=== PATIENT | female | born 1980 | race Caucasian/White ===

== ENCOUNTER 2024-01-25 21:59 | Emergency (ER) | payer SELFPAY ==
[2024-01-25 22:00] VITALS: BP 125/83; PULSE 76; RESP 18; TEMP 36.2; O2SAT 100; BMI 28.3
--- NOTE | 2024-01-25 22:15 | EX.ED.DYSGE1 ---
HPI History of Present Illness Chief Complaint: Complaint Detail of Chief Complaint: Patient presents because she believes she has a UTI Informant: patient and spouse/S.O. Onset/Context/Timing Onset: Yesterday Context: Sudden Onset Timing: Intermittent Quality: Sensation she is not emptying completely and something is going to fall out Location: Right and left inguinal region Current Severity: Mild Maximum Severity: Moderate Worsened by: after voiding Relieved by: Nothing Associated Symptoms Associated Symptoms: Nothing Narrative Narrative: patient is a 43-year-old sexually active woman. Menses ended 2 weeks ago. She does not use any form of control. She is sexually active. She is visiting from [place]. Apparently her and her significant other had anal and vaginal intercourse prior to onset of symptoms. She denies vaginal discharge or vaginal bleeding. She denies rectal pain or rectal bleeding. She denies diarrhea. She denies dysuria, frequency, urgency or hematuria. She denies any central low back pain or flank pain. Patient states she had an sexually-transmitted infection approximately 10 years ago. Prior similar symptoms: No Recent Illness/Hospitalization: No PFSH PFS Medical History (Updated 01/25/24 @ 23:[address] Austin White MD) STI (sexually transmitted infection) History of stillbirth Panic disorder Anxiety Home Medications ?Medication ?Instructions ?Recorded ?Last Taken ?Type nitrofurantoin 100 mg PO Q12 #10 CAPSULES 01/25/24 Unknown Rx monohydrate/macrocrystals 100 mg capsule Allergy/AdvReac Type Severity Reaction Status Date / Time No Known Allergies Allergy Verified 01/25/24 22:00 Social History (Updated 01/25/24 @ 22:[address] Austin White MD) household members: spouse and children Smoking Status: Never smoker ROS ROS ED Constitutional Constitutional ED: Denies chills or fever(s) Gastrointestinal Gastrointestinal: Denies abdominal pain, nausea or vomiting Genitourinary Genitourinary ED: Reports LMP (females 10-50) Details: Comment: (Ended 2 weeks ago. Has irregular heavy periods.); Denies dysuria, hematuria or urinary frequency Musculoskeletal Musculoskeletal: Denies arthralgias, back pain or myalgias Integumentary Denies rash Neurologic Neurologic: Denies headache(s) or paresthesias Endocrine Endocrinology: Denies cold intolerance or heat intolerance Hematologic/Lymphatic Hematologic/Lymphatic: Reports systems reviewed and no addt'l complaints, except as documented EXAM Physical Exam Const Vital Signs: 01/25/24 22:00 Temperature 97.2 F L Temperature Source Temporal Pulse Rate 76 Respiratory Rate 18 Blood Pressure 125/83 H Blood Pressure Mean 97 Pulse Ox 100 Oxygen Delivery Method Room Air Positive well nourished and well developed General Appearance ED: well developed and NAD; Negative for cyanotic or diaphoretic HEENT Reports moist mucous membranes HEENT Narrative: Head is atraumatic and normocephalic. Ears normal. Nares patent. Eyes PERRL and EOMs intact bilaterally General Eye ED: Negative for pale conjunctiva or scleral icterus Neck no lymphadenopathy, supple and no JVD Resp normal respiratory effort and clear to auscultation bilaterally GI normal to inspection, nondistended, normoactive bowel sounds, non-distended and no masses; Negative for hepatosplenomegaly GI Narrative: Question discomfort in the suprapubic area. Back/Spine no CVA tenderness Extremity normal to inspection Neuro oriented x3 and CN's II-XII intact bilaterally Sensorium / Orientation: alert Skin no rashes or lesions noted, no wounds and skin turgor normal General Skin Exam: elasticity normal MDM MDM MDM Narrative Medical decision making narrative: Patient presents with sensation of incomplete emptying. Will obtain bladder scan, UA and test. Differential diagnosis would include urinary retention, urinary tract infection, since she has no vaginal symptoms or vaginal complaints and doubt STI specially since she is with her spouse. Because of the irregular periods will obtain serum hCG. There are no old records since she is from [place]. Lab Data Attestation: I reviewed the patient's lab results. Lab results narrative: UA is consistent with infection. Serum test is negative. Urine culture was sent. [facility]: Laboratory Results - last 24 hr 01/25/24 01/25/24 22:29 22:30 Serum , Qual NEGATIVE Urine Color Straw Urine Clarity Sl. Cloudy Urine pH 6.0 Ur Specific [place] 1.015 Urine Protein 30 H Urine Glucose (UA) Normal Urine Ketones Negative Urine Occult Blood 150 H Urine Nitrite Negative Urine Bilirubin Negative Urine Urobilinogen Normal Ur Leukocyte Esterase 500 H Urine RBC 0 SEEN Urine WBC >100 SEEN Ur Squamous Epith Cells 5-10 SEEN Urine Bacteria 3+ Urine Mucus 0 SEEN Discharge Plan Triage Chief Complaint: Complaint ED Provider: Austin White Dx/Rx/DC Orders Clinical Impression: Acute cystitis, Irregular menstrual bleeding Instructions: ED Cystitis Female Adult Prescriptions: New nitrofurantoin monohyd/m-cryst 100 mg capsule 100 mg PO Q12 Qty: 10 0RF Primary Care Provider: Care Physician,No Primary Referrals: Bebe Tejeda [Non-Staff] - 3-5 Days if not improving Care Physician,No Primary [Primary Care Provider] - Print Language: Citizen Of [place] Disposition Disposition: Home, Self Care
[2024-01-25 22:35] LABS: Mucous, Urine 0 SEEN /hpf (<or=2+); Red Blood Cells-Urine 0 SEEN /hpf (0-5)
[2024-01-25 22:46] LABS: Color, Urine Straw (Yellow); Glucose, Dipstick Normal (Normal); Ketone-Dipstick Negative (Negative); Leukocyte Esterase-Dipstick 500 /ul (Negative); Nitrite-Dipstick Negative (Negative); Occult Blood-Urine 150 /ul (Negative); Protein-Dipstick 30 mg/dl (Negative); Specific Gravity, Urine 1.015 (1.002-1.030); Urine Bilirubin Dipstick Negative (Negative); Urine Clarity Sl. Cloudy (Clear); Urine Urobilinogen Normal (Normal)
[2024-01-25 22:53] LABS: Bacteria 3+ /hpf (None Seen); Squamous Epithelial Cells - UA 5-10 SEEN /hpf (5-10); White Blood Cells >100 SEEN /hpf (0-5)
[2024-01-25 22:56] LABS: Internal QC Validated? YES +Cl - CLEAR BKGD; Pregnancy, Serum, hCG Quali. NEGATIVE Negative
[2024-01-25] MEDS: Nitrofurantoin Macrocrystals 100 MG Capsule PO (23:19)
[2024-01-25 23:21] VITALS: BP 115/71; PULSE 78; RESP 15; TEMP 36.3; O2SAT 98
== END 2024-01-25 23:22 | disposition home or self-care (01) ==
PROVIDERS: Emergency Provider Emergency Medicine; Visit Provider Emergency Medicine
DX: N30.00 Acute cystitis without hematuria (principal); N92.6 Irregular menstruation, unspecified
CPT/HCPCS: 81001; 84703; 87086; 87088; 87186; 99282